=== PATIENT | male | born 1970 | race Caucasian/White ===

== ENCOUNTER 2020-01-15 12:10 | Emergency (ER) | payer MEDICARE, BC ==
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
[2020-01-15] MEDS ORDERED: Lidocaine 2% with EPINEPHrine 1:200,000 20 ML SDV ONE (12:53)
[2020-01-15] MEDS ORDERED: Lidocaine 2% with EPINEPHrine 1:200,000 20 ML SDV INJECT ONE (13:00)
[2020-01-15] MEDS ORDERED: Bacitracin/Neomycin/Polymyxin B Oint 0.9 GM U/D Packet TOP ONE (13:00)
[2020-01-15] MEDS ORDERED: Bacitracin/Neomycin/Polymyxin B Oint 28.4 GM Tube TOP ONE (13:00)
--- NOTE | 2020-01-15 13:03 | CR ---
[id number] RAD/RAD Forearm Left 2V EXAM: 2 VIEWS LEFT FOREARM. INDICATION: FOREIGN BODY. COMPARISON: None. DISCUSSION: There is a 2.6 cm linear metallic foreign body within the superficial soft tissues of the mid left forearm. There is associated soft tissue edema. No bony involvement. IMPRESSION: 1. As above. Orestes Jeffries DO 01/15/20 [id number] Thank you for allowing us to participate in the care of your patient.
[2020-01-15] MEDS ORDERED: Bacitracin/Neomycin/Polymyxin B Oint 0.9 GM U/D Packet ONE (13:34)
[2020-01-15] MEDS ORDERED: Clindamycin HCl 150 MG Cap PO SCH (14:00)
== END 2020-01-15 14:10 | disposition home or self-care (01) ==
LOC: KA.ED 12:10
DX: S51.842A Puncture wound with foreign body of left forearm, initial encounter (principal); I10 Essential (primary) hypertension; F17.210 Nicotine dependence, cigarettes, uncomplicated; Z88.0 Allergy status to penicillin; Z79.899 Other long term (current) drug therapy; Z79.84 Long term (current) use of oral hypoglycemic drugs; W45.8XXA Other foreign body or object entering through skin, initial encounter
CPT/HCPCS: 64450; 73090-LT; 99283-25; A9270-GY

== ENCOUNTER 2021-02-19 21:40 | Emergency (ER) | payer MEDICARE, BC ==
[2021-02-19] MEDS: HYDROmorphone 1 MG/ML Syringe IVPUSH ONE (22:48)
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
[2021-02-19] MEDS: Acetaminophen/HYDROcodone 325-5 MG Tab PO ONE (23:15)
--- NOTE | 2021-02-20 07:52 | CR ---
[id number] RAD/RAD Ankle Right 3V Min EXAM: RAD Ankle Right 3V Min CLINICAL DATA: RIGHT FOOT AND ANKLE PAIN COMPARISON: No previous similar exam is available. FINDINGS: There appears to be a new fracture involving the distal diaphysis of the right tibia There are old fractures of the distal right fibula and tibia There are surgical changes. IMPRESSION: NEW NONDISPLACED SLIGHTLY COMMINUTED DISTAL RIGHT TIBIAL DIAPHYSEAL FRACTURE CORRELATION WITH PREVIOUS STUDIES IS NEEDED Chapo Carter MD 02/20/21 0754 Thank you for allowing us to participate in the care of your patient.
== END 2021-02-19 23:35 | disposition home or self-care (01) ==
LOC: KA.ED 21:40
DX: S82.241A Displaced spiral fracture of shaft of right tibia, initial encounter for closed fracture (principal); E78.00 Pure hypercholesterolemia, unspecified; I10 Essential (primary) hypertension; E11.9 Type 2 diabetes mellitus without complications; E66.9 Obesity, unspecified; Z68.30 Body mass index [BMI] 30.0-30.9, adult; Z79.899 Other long term (current) drug therapy; Z88.0 Allergy status to penicillin; W01.0XXA Fall on same level from slipping, tripping and stumbling without subsequent striking against object, initial encounter
CPT/HCPCS: 29515; 73610-RT; 96374; 99283; 99283-25; A9270-GY; J1170